=== PATIENT | male | born 1950 | race African-American/Black ===

== ENCOUNTER 2018-11-12 18:41 | Inpatient (IN) | payer MEDICARE, OTHER ==
[~2018-11-12] VITALS: Ht 182.9 cm; Wt 94.8 kg
[~2018-11-12 18:41] MED LIST: METF-416 PO; TAMS-11 PO
[2018-11-12] MEDS ORDERED: OXYCODONE HCL 5MG TABLET PO ONE (19:15)
[2018-11-12 21:16] LABS: HEMATOCRIT. 34.4 % (42.0-52.0); MEAN CORPUSCULAR HEMOGLOBIN 27.3 pg (28.0-32.0); MEAN CORPUSCULAR VOLUME 85.3 fL (80.0-94.0); MEAN PLATELET VOLUME 8.7 fl (7.4-10.4); PLATELET 257 x1000/uL (130-400); RED BLOOD CELL COUNT 4.03 mill/uL (4.7-6.1); RED CELL DISTRIBUTION WIDTH 18.8 % (11.6-14.6)
[2018-11-12 21:19] LABS: CHLORIDE 106 mEq/L (98-107)
[2018-11-12 21:21] LABS: PROTHROMBIN TIME 10.7 sec (9.6-11.0)
[2018-11-12 22:07] LABS: CLARITY URINE CLOUDY (CLEAR); COLOR URINE DARK YELLOW (YELLOW); KETONES URINE TRACE (NEGATIVE); LEUKOCYTE ESTERASE URINE 2+ (NEGATIVE); NITRITE URINE NEGATIVE (NEGATIVE); OCCULT BLOOD URINE NEGATIVE (NEGATIVE); PH URINE 6.5 (4.5-8.0); PROTEIN URINE 2+ (NEGATIVE); UROBILINOGEN URINE 0.2 E.U./dL (0.2-1.0)
[2018-11-12 22:11] LABS: PLATELET ESTIMATE NORMAL
[2018-11-12] MEDS ORDERED: MORPHINE SULFATE 2 MG/ML CPJ (NOT FOR IM USE) IV ONE (23:45)
[2018-11-13] VITALS (7 sets, daily range): BP systolic 110–171; BP diastolic 66–78
[2018-11-13 00:27] LABS: CREATINE KINASE MB FRACTION 2.1 ng/mL (0.5-3.6)
[2018-11-13] MEDS ORDERED: PIPERACILLIN/TAZ 3.375G PREMIX 50 ML IV ONE (00:45)
[2018-11-13] MEDS ORDERED: ONDANSETRON HCL 4MG/2ML INJ IV PRN (00:45)
[2018-11-13] MEDS ORDERED: ACETAMINOPHEN 650MG/20.3ML UDC GT PRN (00:45)
[2018-11-13] MEDS ORDERED: ACETAMINOPHEN 650MG SUPP PR PRN (00:45)
[2018-11-13] MEDS ORDERED: VANCOMYCIN 1 G PREMIX 200 ML IV SCH (00:45)
[2018-11-13] MEDS ORDERED: DEXTROSE 50% WATER 50ML SYRINGE IV PRN (00:45)
[2018-11-13] MEDS ORDERED: IPRATROPIUM/ALBUTEROL 0.5-3(2.5)MG/3ML NEB INH PRN (00:45)
[2018-11-13] MEDS ORDERED: CLINDAMYCIN 900 MG in DEXTROSE 5% WATER 50 ML IV ONE (00:45)
[2018-11-13] MEDS ORDERED: NA PHOS,M-B/NA PHOS,DI-BA ENEMA 118ML PR PRN (00:45)
[2018-11-13] MEDS ORDERED: DIPHENHYDRAMINE 50MG/ML VIAL IV PRN (00:45)
[2018-11-13] MEDS ORDERED: MAGNESIUM/ALUMINUM HYDROXIDE/SIMETHICONE 30ML UDC PO PRN (00:45)
[2018-11-13] MEDS ORDERED: SODIUM CHLORIDE 0.9% 1000ML BAG (SEPSIS BOLUS) IV ONE (00:45)
[2018-11-13] MEDS ORDERED: GUAIFENESIN 200MG/10ML SUGAR FREE UDC PO PRN (00:45)
[2018-11-13] MEDS: CLONIDINE 0.1MG TABLET PO PRN (02:36)
[2018-11-13] MEDS ORDERED: CEFTRIAXONE 1 G PREMIX 50 ML IV SCH ×2 (04:00→19:00)
[2018-11-13] MEDS: ENOXAPARIN 100MG/ML SYR SUBCUT SCH ×2 (04:21→17:25)
[2018-11-13] MEDS: DOCUSATE SODIUM 100MG CAPSULE PO PRN (04:21)
[2018-11-13] MEDS: BLOOD SUGAR DIAGNOSTIC STRIP TEST SCH ×4 (05:21→21:18)
[2018-11-13] MEDS: INSULIN LISPRO 100 UNITS/ML SUBCUT SCH ×4 (05:27→21:00)
[2018-11-13] MEDS: SODIUM CHLORIDE 0.9% INJ 3ML FLUSH IVF SCH ×3 (05:27→21:25)
[2018-11-13 07:48] LABS: CREATINE KINASE MB FRACTION 2.9 ng/mL (0.5-3.6)
[2018-11-13 09:21] LABS: HEMATOCRIT. 28.6 % (42.0-52.0); HEMOGLOBIN. 9.1 g/dL (14.0-18.0); MEAN CORPUSCULAR HEMOGLOBIN 27.1 pg (28.0-32.0); MEAN CORPUSCULAR VOLUME 85.3 fL (80.0-94.0); PLATELET 210 x1000/uL (130-400); RED BLOOD CELL COUNT 3.36 mill/uL (4.7-6.1); RED CELL DISTRIBUTION WIDTH 18.5 % (11.6-14.6)
[2018-11-13 11:03] LABS: INR 1.1; PROTHROMBIN TIME 11.2 sec (9.6-11.0)
[2018-11-13] MEDS: MORPHINE SULFATE 4 MG/ML CPJ (NOT FOR IM USE) IV PRN ×2 (11:06→15:27)
[2018-11-13] MEDS: METOPROLOL TARTRATE 25MG TABLET PO SCH ×2 (11:06→21:25)
[2018-11-13 11:42] LABS: CHLORIDE 110 mEq/L (98-107)
[2018-11-13] MEDS: HYDROCODONE/ACETAMINOPHEN 5/325MG TABLET PO PRN ×2 (13:06→17:24)
[2018-11-13 16:39] LABS: PLATELET ESTIMATE NORMAL
[2018-11-14] VITALS (7 sets, daily range): BP systolic 155–172; BP diastolic 68–81
[2018-11-14] MEDS: MORPHINE SULFATE 4 MG/ML CPJ (NOT FOR IM USE) IV PRN ×4 (00:36→20:35)
[2018-11-14] MEDS: CLONIDINE 0.1MG TABLET PO PRN ×2 (00:37→12:05)
[2018-11-14] MEDS: ACETAMINOPHEN 325MG TABLET PO PRN ×2 (00:37→16:36)
[2018-11-14] MEDS: BLOOD SUGAR DIAGNOSTIC STRIP TEST SCH ×4 (06:03→21:33)
[2018-11-14] MEDS: SODIUM CHLORIDE 0.9% INJ 3ML FLUSH IVF SCH ×3 (06:09→21:33)
[2018-11-14] MEDS: ENOXAPARIN 100MG/ML SYR SUBCUT SCH (06:09)
[2018-11-14 06:33] LABS: BASOPHILS % 0.6 % (0.0-2.0); EOSINOPHILS % 3.9 % (0.0-5.0); HEMATOCRIT. 30.8 % (42.0-52.0); LYMPHOCYTES % 8.2 % (20.0-50.0); MEAN CORPUSCULAR HEMOGLOBIN 27.6 pg (28.0-32.0); MEAN CORPUSCULAR VOLUME 85.1 fL (80.0-94.0); MEAN PLATELET VOLUME 8.8 fl (7.4-10.4); MONOCYTES % 4.8 % (2.0-8.0); NEUTROPHILS % 82.5 % (40.0-76.0); PLATELET 196 x1000/uL (130-400); RED BLOOD CELL COUNT 3.62 mill/uL (4.7-6.1); RED CELL DISTRIBUTION WIDTH 18.4 % (11.6-14.6)
[2018-11-14] MEDS: INSULIN LISPRO 100 UNITS/ML SUBCUT SCH ×4 (07:15→21:32)
[2018-11-14 08:40] LABS: CHLORIDE 110 mEq/L (98-107)
[2018-11-14 08:51] LABS: HDL CHOLESTEROL 60 mg/dL (40-59)
[2018-11-14 08:53] LABS: CREATINE KINASE 129 IU/L (39-308); LDL CHOLESTEROL 62 mg/dL (5-100)
[2018-11-14 08:58] LABS: CREATINE KINASE MB FRACTION 1.6 ng/mL (0.5-3.6)
[2018-11-14] MEDS: METOPROLOL TARTRATE 25MG TABLET PO SCH (09:03)
[2018-11-14] MEDS: CEFTRIAXONE 1 G PREMIX 50 ML IV SCH (09:03)
[2018-11-14] MEDS ORDERED: VANCOMYCIN 1 G PREMIX 200 ML IV SCH ×2 (11:00→22:00)
[2018-11-14] MEDS: AMLODIPINE 2.5MG TABLET PO SCH (21:31)
[2018-11-14] MEDS: METOPROLOL TARTRATE 50MG TABLET PO SCH (21:31)
[2018-11-15] VITALS: BP 110/77
[2018-11-15] MEDS: LINEZOLID 600 MG PREMIX 300 ML IV SCH ×2 (02:20→15:38)
[2018-11-15 04:00] VITALS: BP 157/74
[2018-11-15] MEDS: MORPHINE SULFATE 4 MG/ML CPJ (NOT FOR IM USE) IV PRN ×2 (06:27→18:54)
[2018-11-15 07:09] LABS: BASOPHILS % 0.4 % (0.0-2.0); EOSINOPHILS % 3.9 % (0.0-5.0); HEMATOCRIT. 29.4 % (42.0-52.0); HEMOGLOBIN. 9.7 g/dL (14.0-18.0); LYMPHOCYTES % 7.8 % (20.0-50.0); MEAN CORPUSCULAR VOLUME 84.8 fL (80.0-94.0); MONOCYTES % 6.6 % (2.0-8.0); NEUTROPHILS % 81.3 % (40.0-76.0); PLATELET 178 x1000/uL (130-400); RED BLOOD CELL COUNT 3.46 mill/uL (4.7-6.1); RED CELL DISTRIBUTION WIDTH 18.7 % (11.6-14.6)
[2018-11-15] MEDS: SODIUM CHLORIDE 0.9% INJ 3ML FLUSH IVF SCH ×3 (07:13→21:32)
[2018-11-15] MEDS: INSULIN LISPRO 100 UNITS/ML SUBCUT SCH ×4 (07:15→21:00)
[2018-11-15] MEDS: BLOOD SUGAR DIAGNOSTIC STRIP TEST SCH ×4 (07:17→21:32)
[2018-11-15 07:41] LABS: CHLORIDE 108 mEq/L (98-107)
[2018-11-15 08:00] VITALS: BP 129/75
[2018-11-15] MEDS ORDERED: BACITRACIN 15GM TUBE TOP ONE (08:05)
[2018-11-15] MEDS ORDERED: VANCOMYCIN HCL 500 MG/VIAL ONE (08:05)
[2018-11-15] MEDS ORDERED: ENOXAPARIN 40MG/0.4ML SYR SUBCUT SCH (09:00)
[2018-11-15] MEDS: METOPROLOL TARTRATE 50MG TABLET PO SCH ×2 (09:03→21:32)
[2018-11-15] MEDS: AMLODIPINE 2.5MG TABLET PO SCH ×2 (09:04→21:32)
[2018-11-15] MEDS: CEFTRIAXONE 1 G PREMIX 50 ML IV SCH (09:04)
[2018-11-15] MEDS ORDERED: PROPOFOL 200MG/20ML VIAL IV ONE ×2 (11:34→12:00)
[2018-11-15] MEDS ORDERED: FENTANYL CITRATE/PF 50MCG/ML 2ML VIAL ONE ×2 (11:34→12:14)
[2018-11-15] MEDS ORDERED: LIDOCAINE HCL/PF 1% 10 MG/ML 5ML VIAL ONE (11:34)
[2018-11-15] MEDS ORDERED: MIDAZOLAM HCL 2 MG/2 ML VIAL ONE (11:34)
[2018-11-15] MEDS ORDERED: CEFAZOLIN SODIUM 1000MG/VIAL ONE (11:51)
[2018-11-15] MEDS ORDERED: PROPOFOL 10MG/ML 100ML 100 ML IV ONE (12:23)
[2018-11-15] MEDS ORDERED: FENTANYL CITRATE/PF 50MCG/ML 2ML VIAL IV PRN (12:45)
[2018-11-15] MEDS ORDERED: ONDANSETRON HCL 4MG/2ML INJ IV PRN (12:45)
[2018-11-15] MEDS ORDERED: HYDROMORPHONE HCL/PF 2MG/ML CPJ IV PRN (12:45)
[2018-11-15] MEDS: CLONIDINE 0.1MG TABLET PO PRN (15:38)
[2018-11-15 16:00] VITALS: BP 182/79
[2018-11-15 20:00] VITALS: BP 168/72
[2018-11-16] VITALS: BP 142/74
[2018-11-16] MEDS: LINEZOLID 600 MG PREMIX 300 ML IV SCH ×2 (02:54→16:45)
[2018-11-16 04:00] VITALS: BP 158/70
[2018-11-16] MEDS: MORPHINE SULFATE 4 MG/ML CPJ (NOT FOR IM USE) IV PRN ×2 (04:35→11:06)
[2018-11-16] MEDS: SODIUM CHLORIDE 0.9% INJ 3ML FLUSH IVF SCH ×3 (06:00→21:14)
[2018-11-16] MEDS: BLOOD SUGAR DIAGNOSTIC STRIP TEST SCH ×4 (06:09→21:14)
[2018-11-16] MEDS: INSULIN LISPRO 100 UNITS/ML SUBCUT SCH ×4 (07:06→21:11)
[2018-11-16 08:00] VITALS: BP 99/63
[2018-11-16] MEDS: AMLODIPINE 2.5MG TABLET PO SCH ×2 (09:00→21:12)
[2018-11-16] MEDS: METOPROLOL TARTRATE 50MG TABLET PO SCH ×2 (09:00→21:12)
[2018-11-16] MEDS: ACETAMINOPHEN 325MG TABLET PO PRN ×3 (09:10→21:28)
[2018-11-16] MEDS: CEFTRIAXONE 1 G PREMIX 50 ML IV SCH (09:11)
[2018-11-16 12:00] VITALS: BP 155/61
[2018-11-16 16:00] VITALS: BP 168/71
[2018-11-16] MEDS: CLONIDINE 0.1MG TABLET PO PRN (17:02)
[2018-11-16 20:00] VITALS: BP 114/66
[2018-11-17] VITALS: BP 165/72
[2018-11-17] MEDS: LINEZOLID 600 MG PREMIX 300 ML IV SCH ×2 (03:07→15:04)
[2018-11-17 04:00] VITALS: BP 156/69
[2018-11-17] MEDS: SODIUM CHLORIDE 0.9% INJ 3ML FLUSH IVF SCH ×3 (06:52→21:59)
[2018-11-17] MEDS: BLOOD SUGAR DIAGNOSTIC STRIP TEST SCH ×4 (06:53→21:54)
[2018-11-17] MEDS: INSULIN LISPRO 100 UNITS/ML SUBCUT SCH ×4 (07:15→21:59)
[2018-11-17 08:00] VITALS: BP 178/76
[2018-11-17] MEDS: DOCUSATE SODIUM 100MG CAPSULE PO PRN (08:25)
[2018-11-17] MEDS: CEFTRIAXONE 1 G PREMIX 50 ML IV SCH (08:25)
[2018-11-17] MEDS: METOPROLOL TARTRATE 50MG TABLET PO SCH ×2 (08:26→21:54)
[2018-11-17] MEDS: AMLODIPINE 2.5MG TABLET PO SCH ×2 (08:26→21:54)
[2018-11-17 12:00] VITALS: BP 173/68
[2018-11-17] MEDS: ENOXAPARIN 40MG/0.4ML SYR SUBCUT SCH (13:09)
[2018-11-17 16:00] VITALS: BP 163/86
[2018-11-17] MEDS: CLONIDINE 0.1MG TABLET PO PRN (16:23)
[2018-11-17] MEDS: ACETAMINOPHEN 325MG TABLET PO PRN (16:25)
[2018-11-17] MEDS ORDERED: MORPHINE SULFATE 2 MG/ML CPJ (NOT FOR IM USE) IV PRN (16:30)
[2018-11-17 20:00] VITALS: BP 156/59
[2018-11-18] VITALS: BP 146/80
[2018-11-18 04:00] VITALS: BP 156/51
[2018-11-18] MEDS: SODIUM CHLORIDE 0.9% INJ 3ML FLUSH IVF SCH ×3 (05:35→21:56)
[2018-11-18] MEDS: BLOOD SUGAR DIAGNOSTIC STRIP TEST SCH ×4 (06:02→21:35)
[2018-11-18] MEDS: INSULIN LISPRO 100 UNITS/ML SUBCUT SCH ×4 (06:17→21:00)
[2018-11-18 08:00] VITALS: BP 178/69
[2018-11-18] MEDS: ENOXAPARIN 40MG/0.4ML SYR SUBCUT SCH (09:23)
[2018-11-18] MEDS: DOCUSATE SODIUM 100MG CAPSULE PO SCH (09:23)
[2018-11-18] MEDS: METOPROLOL TARTRATE 50MG TABLET PO SCH ×2 (09:24→21:33)
[2018-11-18] MEDS: AMLODIPINE 2.5MG TABLET PO SCH ×2 (09:24→21:33)
[2018-11-18] MEDS: CEFTRIAXONE 1 G PREMIX 50 ML IV SCH (09:25)
[2018-11-18 12:00] VITALS: BP 163/59
[2018-11-18 16:00] VITALS: BP 189/79
[2018-11-18] MEDS: CLONIDINE 0.1MG TABLET PO PRN (18:37)
[2018-11-18 20:00] VITALS: BP 174/71
[2018-11-19] VITALS: BP 152/56
[2018-11-19 04:00] VITALS: BP 149/60
[2018-11-19] MEDS: SODIUM CHLORIDE 0.9% INJ 3ML FLUSH IVF SCH ×3 (05:14→21:13)
[2018-11-19] MEDS: BLOOD SUGAR DIAGNOSTIC STRIP TEST SCH ×4 (05:45→20:53)
[2018-11-19] MEDS: INSULIN LISPRO 100 UNITS/ML SUBCUT SCH ×4 (06:22→21:00)
[2018-11-19 06:38] LABS: CHLORIDE 107 mEq/L (98-107)
[2018-11-19 06:52] LABS: BASOPHILS % 0.8 % (0.0-2.0); EOSINOPHILS % 3.1 % (0.0-5.0); HEMATOCRIT. 27.4 % (42.0-52.0); HEMOGLOBIN. 9.1 g/dL (14.0-18.0); LYMPHOCYTES % 13.2 % (20.0-50.0); MEAN CORPUSCULAR VOLUME 84.1 fL (80.0-94.0); MEAN PLATELET VOLUME 8.3 fl (7.4-10.4); MONOCYTES % 10.8 % (2.0-8.0); NEUTROPHILS % 72.1 % (40.0-76.0); PLATELET 260 x1000/uL (130-400); RED BLOOD CELL COUNT 3.26 mill/uL (4.7-6.1); RED CELL DISTRIBUTION WIDTH 17.8 % (11.6-14.6)
[2018-11-19] MEDS ORDERED: POTASSIUM CHLORIDE 20MEQ TABLET SR PO NR (07:05)
[2018-11-19 08:00] VITALS: BP 166/59
[2018-11-19] MEDS: AMLODIPINE 2.5MG TABLET PO SCH ×2 (09:15→21:13)
[2018-11-19] MEDS: METOPROLOL TARTRATE 50MG TABLET PO SCH ×2 (09:15→20:53)
[2018-11-19] MEDS: CEFTRIAXONE 1 G PREMIX 50 ML IV SCH (09:15)
[2018-11-19] MEDS: DOCUSATE SODIUM 100MG CAPSULE PO SCH (09:15)
[2018-11-19] MEDS: ENOXAPARIN 40MG/0.4ML SYR SUBCUT SCH (10:06)
[2018-11-19] MEDS ORDERED: NON FORMULARY PATIENT HOME MED PO SCH (12:00)
[2018-11-19] MEDS ORDERED: POTASSIUM CHLORIDE 20MEQ TABLET SR PO SCH (12:00)
[2018-11-19 12:03] VITALS: BP 145/61
[2018-11-19 16:00] VITALS: BP 155/55
[2018-11-19 20:00] VITALS: BP 157/61
[2018-11-19] MEDS ORDERED: CLONIDINE 0.1MG TABLET PO SCH (22:00)
[2018-11-20] VITALS (7 sets, daily range): BP systolic 137–168; BP diastolic 48–70
[2018-11-20] MEDS: SODIUM CHLORIDE 0.9% INJ 3ML FLUSH IVF SCH ×2 (06:59→13:21)
[2018-11-20] MEDS: INSULIN LISPRO 100 UNITS/ML SUBCUT SCH ×4 (06:59→20:55)
[2018-11-20] MEDS: BLOOD SUGAR DIAGNOSTIC STRIP TEST SCH ×4 (06:59→20:55)
[2018-11-20] MEDS: AMLODIPINE 2.5MG TABLET PO SCH (08:45)
[2018-11-20] MEDS: METOPROLOL TARTRATE 50MG TABLET PO SCH ×2 (08:45→20:51)
[2018-11-20] MEDS: DOCUSATE SODIUM 100MG CAPSULE PO SCH (08:45)
[2018-11-20] MEDS: CEFTRIAXONE 1 G PREMIX 50 ML IV SCH (08:46)
[2018-11-20] MEDS: ENOXAPARIN 40MG/0.4ML SYR SUBCUT SCH (08:46)
[2018-11-20] MEDS: AMLODIPINE 5MG TABLET PO SCH (20:51)
[2018-11-20] MEDS: CLONIDINE 0.1MG TABLET PO SCH (20:52)
[2018-11-21] MEDS: SODIUM CHLORIDE 0.9% INJ 3ML FLUSH IVF SCH ×4 (00:53→21:03)
[2018-11-21 04:00] VITALS: BP 157/56
[2018-11-21 04:05] VITALS: BP 157/56
[2018-11-21] MEDS: BLOOD SUGAR DIAGNOSTIC STRIP TEST SCH ×4 (06:11→21:03)
[2018-11-21] MEDS: INSULIN LISPRO 100 UNITS/ML SUBCUT SCH ×4 (06:21→21:03)
[2018-11-21 08:15] VITALS: BP 159/66
[2018-11-21] MEDS: METOPROLOL TARTRATE 50MG TABLET PO SCH ×2 (08:18→21:00)
[2018-11-21] MEDS: CEFTRIAXONE 1 G PREMIX 50 ML IV SCH (08:18)
[2018-11-21] MEDS: AMLODIPINE 5MG TABLET PO SCH ×2 (08:18→21:00)
[2018-11-21] MEDS: DOCUSATE SODIUM 100MG CAPSULE PO SCH (08:18)
[2018-11-21] MEDS: CLONIDINE 0.1MG TABLET PO SCH ×2 (08:18→21:00)
[2018-11-21] MEDS: ENOXAPARIN 40MG/0.4ML SYR SUBCUT SCH (08:19)
[2018-11-21 12:00] VITALS: BP 162/69
[2018-11-21 16:00] VITALS: BP 128/56
[2018-11-21 20:00] VITALS: BP 163/84
[2018-11-22] VITALS: BP 128/54
[2018-11-22 04:00] VITALS: BP 147/56
[2018-11-22] MEDS: BLOOD SUGAR DIAGNOSTIC STRIP TEST SCH ×3 (06:00→16:52)
[2018-11-22] MEDS: INSULIN LISPRO 100 UNITS/ML SUBCUT SCH ×3 (06:00→17:15)
[2018-11-22] MEDS: SODIUM CHLORIDE 0.9% INJ 3ML FLUSH IVF SCH ×2 (06:02→15:55)
[2018-11-22 08:22] VITALS: BP 148/51
[2018-11-22] MEDS: DOCUSATE SODIUM 100MG CAPSULE PO SCH (09:45)
[2018-11-22] MEDS: CLONIDINE 0.1MG TABLET PO SCH ×2 (09:49→17:53)
[2018-11-22] MEDS: ENOXAPARIN 40MG/0.4ML SYR SUBCUT SCH (09:53)
[2018-11-22] MEDS: AMLODIPINE 5MG TABLET PO SCH (09:59)
[2018-11-22] MEDS: METOPROLOL TARTRATE 50MG TABLET PO SCH (09:59)
[2018-11-22 12:00] VITALS: BP 150/56
[2018-11-22 16:00] VITALS: BP 140/71
[2018-11-22 19:23] VITALS: BP 140/71
== END 2018-11-22 18:10 | DRG 853 ==
LOC: ER 18:41 → 5WST 11-13 00:26 → ENRESERV 11-13 01:19 → EDBEDREQSVC 11-13 01:22
PROVIDERS: ADMIT Family Medicine; ATTEND Family Medicine
PROC: 0QS734Z Reposition Left Upper Femur with Internal Fixation Device, Percutaneous Approach (ICD-10-PCS; principal; 2018-11-15)
PROC: BQ14ZZZ Fluoroscopy of Left Femur (ICD-10-PCS; 2018-11-15)
DX: A41.9 Sepsis, unspecified organism (principal); S72.012A Unspecified intracapsular fracture of left femur, initial encounter for closed fracture; I21.4 Non-ST elevation (NSTEMI) myocardial infarction; E44.0 Moderate protein-calorie malnutrition; N39.0 Urinary tract infection, site not specified; I42.9 Cardiomyopathy, unspecified; E83.51 Hypocalcemia; D64.9 Anemia, unspecified; E11.51 Type 2 diabetes mellitus with diabetic peripheral angiopathy without gangrene; L89.150 Pressure ulcer of sacral region, unstageable; I10 Essential (primary) hypertension; B96.89 Other specified bacterial agents as the cause of diseases classified elsewhere; L89.159 Pressure ulcer of sacral region, unspecified stage; W05.0XXA Fall from non-moving wheelchair, initial encounter; M17.12 Unilateral primary osteoarthritis, left knee; N31.9 Neuromuscular dysfunction of bladder, unspecified; Z89.512 Acquired absence of left leg below knee; Z89.511 Acquired absence of right leg below knee; Z83.3 Family history of diabetes mellitus; Z99.3 Dependence on wheelchair; Z79.899 Other long term (current) drug therapy; Z79.84 Long term (current) use of oral hypoglycemic drugs; Y93.89 Activity, other specified; Y92.89 Other specified places as the place of occurrence of the external cause; Y99.8 Other external cause status; Z68.28 Body mass index [BMI] 28.0-28.9, adult
CPT/HCPCS: 36415; 71045; 72192; 73502; 73522; 73560; 73700; 76000; 80048; 80061; 80202; 82550; 82553; 82962; 83605; 84132; 84134; 84484; 86850; 86900; 87077; 87186; 93005; 93306; 96374; 97110; 97162; 97166; 97530; 97535; 99285; A6261; J0690; J0696; J1650; J1815; J2020; J2250; J2270; J2543; J2704; J3010; J3370; J3490; J7030; J7040; J7060; A4315

== ENCOUNTER 2021-03-04 18:02 | Inpatient (IN) | payer MEDICARE, OTHER ==
[~2021-03-04] VITALS: Ht 177.8 cm; Wt 84.0 kg
[2021-03-04] MEDS ORDERED: MORPHINE SULFATE 4 MG/ML CPJ (NOT FOR IM USE) IV ONE (18:30)
[2021-03-04] MEDS ORDERED: ONDANSETRON HCL 4MG/2ML INJ IV ONE (18:30)
[2021-03-04 19:09] LABS: CHLORIDE 101 mEq/L (98-107)
[2021-03-04 19:13] LABS: HEMATOCRIT. 34.8 % (42.0-52.0); HEMOGLOBIN. 11.6 g/dL (14.0-18.0); MEAN CORPUSCULAR HEMOGLOBIN 28.4 pg (28.0-32.0); MEAN PLATELET VOLUME 8.5 fl (7.4-10.4); PLATELET 360 x1000/uL (130-400); RED CELL DISTRIBUTION WIDTH 16.2 % (11.6-14.6)
[2021-03-04 19:29] LABS: CREATINE KINASE 2309 IU/L (39-308)
[2021-03-04 19:38] LABS: PLATELET ESTIMATE NORMAL
[2021-03-04] MEDS ORDERED: CEFTRIAXONE 1 G PREMIX 50 ML IV ONE (19:45)
[2021-03-04] MEDS ORDERED: SODIUM CHLORIDE 0.9% 1000ML BAG (SEPSIS BOLUS) IV ONE (19:45)
[2021-03-04 19:51] LABS: INR 1.1; PARTIAL THROMBOPLASTIN TIME 31.3 sec (23.4-31.0); PROTHROMBIN TIME 11.7 sec (9.6-11.0)
[2021-03-04] MEDS ORDERED: LEVOFLOXACIN 500MG PREMIX 100 ML IV ONE (21:30)
[2021-03-04 21:55] LABS: CLARITY URINE CLEAR (CLEAR); COLOR URINE DARK YELLOW (YELLOW); KETONES URINE TRACE (NEGATIVE); LEUKOCYTE ESTERASE URINE 1+ (NEGATIVE); NITRITE URINE NEGATIVE (NEGATIVE); OCCULT BLOOD URINE 3+ (NEGATIVE); PROTEIN URINE 3+ (NEGATIVE); SPECIFIC GRAVITY URINE 1.021 (1.005-1.030)
[2021-03-05] VITALS (9 sets, daily range): BP systolic 121–146; BP diastolic 60–75
[2021-03-05] MEDS ORDERED: DEXTROSE 50% WATER 50ML SYRINGE IV PRN (02:45)
[2021-03-05] MEDS ORDERED: ONDANSETRON HCL 4MG/2ML INJ IV PRN (02:45)
[2021-03-05] MEDS ORDERED: HEPARIN 25,000 UNITS PREMIX 250 ML IV SCH ×2 (02:45→05:15)
[2021-03-05] MEDS ORDERED: ACETAMINOPHEN 325MG TABLET PO PRN (02:45)
[2021-03-05] MEDS ORDERED: HEPARIN 60 UNITS/KG BOLUS IV SCH ×2 (05:00→07:00)
[2021-03-05] MEDS ORDERED: HEPARIN BOLUS PRN aPTT <30 IV ×2 (05:15→10:00)
[2021-03-05] MEDS ORDERED: HEPARIN BOLUS PRN aPTT 30-44 IV ×2 (05:15→10:00)
[2021-03-05] MEDS: BLOOD SUGAR DIAGNOSTIC STRIP TEST SCH ×4 (07:30→20:29)
[2021-03-05 07:48] LABS: HEMATOCRIT. 32.5 % (42.0-52.0); HEMOGLOBIN. 10.6 g/dL (14.0-18.0); MEAN PLATELET VOLUME 8.4 fl (7.4-10.4); PLATELET 321 x1000/uL (130-400); RED BLOOD CELL COUNT 3.77 mill/uL (4.7-6.1); RED CELL DISTRIBUTION WIDTH 16.7 % (11.6-14.6)
[2021-03-05] MEDS: ASPIRIN 81MG TABLET PO SCH (08:55)
[2021-03-05] MEDS: AMLODIPINE 10MG TABLET PO SCH (08:55)
[2021-03-05] MEDS: METOPROLOL TARTRATE 50MG TABLET PO SCH ×2 (08:55→20:18)
[2021-03-05] MEDS: INSULIN LISPRO 100 UNITS/ML SUBCUT SCH ×4 (08:59→20:28)
[2021-03-05] MEDS: PANTOPRAZOLE 40MG DR TABLET PO SCH (09:00)
[2021-03-05] MEDS: INSULIN GLARGINE UD 100 UNITS/ML SYR SUBCUT SCH ×2 (10:12→20:29)
[2021-03-05] MEDS: SODIUM CHLORIDE 0.9% 1,000 ML IV SCH (11:15)
[2021-03-05] MEDS ORDERED: NALOXONE HCL 0.4MG/ML VIAL IV PRN (12:00)
[2021-03-05] MEDS: HYDROCODONE/ACETAMINOPHEN 5/325MG TABLET PO PRN ×2 (12:42→23:06)
[2021-03-05] MEDS: CEFTRIAXONE 1,000 MG in DEXTROSE 5% WATER 50 ML IV SCH (20:17)
[2021-03-05 20:37] LABS: PLATELET ESTIMATE NORMAL
[2021-03-05] MEDS ORDERED: FAMOTIDINE 20MG TABLET PO SCH (21:00)
[2021-03-05] MEDS: HYDRALAZINE HCL 50MG TABLET PO SCH (22:40)
[2021-03-06] VITALS (12 sets, daily range): BP systolic 112–155; BP diastolic 48–78
[2021-03-06 03:15] LABS: HEMOGLOBIN. 10.7 g/dL (14.0-18.0); MEAN CORPUSCULAR HEMOGLOBIN 28.6 pg (28.0-32.0); MEAN CORPUSCULAR VOLUME 85.2 fL (80.0-94.0); MEAN PLATELET VOLUME 7.9 fl (7.4-10.4); PLATELET 344 x1000/uL (130-400); RED BLOOD CELL COUNT 3.75 mill/uL (4.7-6.1); RED CELL DISTRIBUTION WIDTH 16.1 % (11.6-14.6)
[2021-03-06 03:43] LABS: CHLORIDE 103 mEq/L (98-107)
[2021-03-06] MEDS: HYDRALAZINE HCL 50MG TABLET PO SCH ×3 (05:21→21:33)
[2021-03-06] MEDS: HYDROCODONE/ACETAMINOPHEN 5/325MG TABLET PO PRN ×2 (05:31→21:34)
[2021-03-06] MEDS ORDERED: POTASSIUM CHLORIDE 20MEQ/PACKET PO SCH (07:00)
[2021-03-06] MEDS: SODIUM CHLORIDE 0.9% 1,000 ML IV SCH (07:15)
[2021-03-06] MEDS: BLOOD SUGAR DIAGNOSTIC STRIP TEST SCH ×4 (07:30→21:33)
[2021-03-06] MEDS: INSULIN LISPRO 100 UNITS/ML SUBCUT SCH ×4 (08:00→21:37)
[2021-03-06] MEDS: AMLODIPINE 10MG TABLET PO SCH (09:28)
[2021-03-06] MEDS: ASPIRIN 81MG TABLET PO SCH (09:28)
[2021-03-06] MEDS: METOPROLOL TARTRATE 50MG TABLET PO SCH ×2 (09:29→21:33)
[2021-03-06] MEDS: PANTOPRAZOLE 40MG DR TABLET PO SCH (09:30)
[2021-03-06] MEDS ORDERED: POTASSIUM CHLORIDE 20MEQ TABLET SR PO NR (10:00)
[2021-03-06] MEDS: INSULIN GLARGINE UD 100 UNITS/ML SYR SUBCUT SCH ×2 (10:00→21:37)
[2021-03-06 16:37] LABS: PLATELET ESTIMATE NORMAL
[2021-03-06] MEDS: FAMOTIDINE 20MG TABLET PO SCH (21:32)
[2021-03-06] MEDS: CEFTRIAXONE 1,000 MG in DEXTROSE 5% WATER 50 ML IV SCH (21:32)
[2021-03-07] VITALS (13 sets, daily range): BP systolic 110–150; BP diastolic 43–98
[2021-03-07] MEDS: SODIUM CHLORIDE 0.9% 1,000 ML IV SCH ×2 (03:15→22:55)
[2021-03-07] MEDS: HYDRALAZINE HCL 50MG TABLET PO SCH ×3 (05:24→21:51)
[2021-03-07] MEDS: BLOOD SUGAR DIAGNOSTIC STRIP TEST SCH ×4 (07:58→20:26)
[2021-03-07] MEDS: FAMOTIDINE 20MG TABLET PO SCH ×2 (07:59→20:53)
[2021-03-07] MEDS: INSULIN LISPRO 100 UNITS/ML SUBCUT SCH ×4 (07:59→20:26)
[2021-03-07] MEDS: AMLODIPINE 10MG TABLET PO SCH (08:00)
[2021-03-07] MEDS: ASPIRIN 81MG TABLET PO SCH (08:00)
[2021-03-07] MEDS: METOPROLOL TARTRATE 50MG TABLET PO SCH ×2 (08:01→20:53)
[2021-03-07] MEDS ORDERED: LEVO500T89 MT (08:36)
[2021-03-07] MEDS: ENOXAPARIN 40MG/0.4ML SYR SUBCUT SCH (09:58)
[2021-03-07] MEDS: INSULIN GLARGINE UD 100 UNITS/ML SYR SUBCUT SCH ×2 (10:03→22:00)
[2021-03-07 10:23] LABS: HEMATOCRIT. 30.8 % (42.0-52.0); HEMOGLOBIN. 10.3 g/dL (14.0-18.0); MEAN CORPUSCULAR HEMOGLOBIN 28.3 pg (28.0-32.0); MEAN CORPUSCULAR VOLUME 84.7 fL (80.0-94.0); MEAN PLATELET VOLUME 8.1 fl (7.4-10.4); PLATELET 391 x1000/uL (130-400); RED BLOOD CELL COUNT 3.64 mill/uL (4.7-6.1); RED CELL DISTRIBUTION WIDTH 16.2 % (11.6-14.6)
[2021-03-07 10:33] LABS: CHLORIDE 105 mEq/L (98-107)
[2021-03-07 13:17] LABS: PLATELET ESTIMATE NORMAL
[2021-03-07] MEDS: CEFTRIAXONE 1,000 MG in DEXTROSE 5% WATER 50 ML IV SCH (19:40)
[2021-03-08] VITALS (12 sets, daily range): BP systolic 120–162; BP diastolic 54–108
[2021-03-08] MEDS: HYDRALAZINE HCL 50MG TABLET PO SCH ×3 (06:42→21:31)
[2021-03-08] MEDS: FAMOTIDINE 20MG TABLET PO SCH ×2 (06:42→21:31)
[2021-03-08] MEDS: HYDROCODONE/ACETAMINOPHEN 5/325MG TABLET PO PRN (06:48)
[2021-03-08] MEDS: INSULIN LISPRO 100 UNITS/ML SUBCUT SCH ×4 (08:00→21:00)
[2021-03-08] MEDS: BLOOD SUGAR DIAGNOSTIC STRIP TEST SCH ×4 (08:09→21:35)
[2021-03-08] MEDS: AMLODIPINE 10MG TABLET PO SCH (08:37)
[2021-03-08] MEDS: METOPROLOL TARTRATE 50MG TABLET PO SCH ×2 (08:37→21:31)
[2021-03-08] MEDS: ASPIRIN 81MG TABLET PO SCH (08:37)
[2021-03-08] MEDS: ENOXAPARIN 40MG/0.4ML SYR SUBCUT SCH (08:38)
[2021-03-08] MEDS: INSULIN GLARGINE UD 100 UNITS/ML SYR SUBCUT SCH ×2 (09:42→21:33)
[2021-03-08] MEDS: CEFTRIAXONE 1,000 MG in DEXTROSE 5% WATER 50 ML IV SCH (20:00)
[2021-03-09] VITALS: BP 154/52
[2021-03-09 02:00] VITALS: BP 149/64
[2021-03-09 03:53] VITALS: BP 148/68
[2021-03-09] MEDS: HYDRALAZINE HCL 50MG TABLET PO SCH (05:21)
[2021-03-09 06:00] VITALS: BP 156/66
[2021-03-09] MEDS: AMLODIPINE 10MG TABLET PO SCH (07:13)
[2021-03-09] MEDS: METOPROLOL TARTRATE 50MG TABLET PO SCH (07:13)
== END 2021-03-09 13:13 | disposition home health service (06) | DRG 871 ==
LOC: ER 18:02 → 5EST 21:24 → EDBEDREQTM 21:27 → EDBEDREQSVC 21:27 → EDBEDREQ 21:27 → ENRESERV 22:50
PROVIDERS: ADMIT Internal Medicine; ATTEND Internal Medicine
DX: A41.9 Sepsis, unspecified organism (principal); E43 Unspecified severe protein-calorie malnutrition; N17.0 Acute kidney failure with tubular necrosis; I21.4 Non-ST elevation (NSTEMI) myocardial infarction; N39.0 Urinary tract infection, site not specified; M62.82 Rhabdomyolysis; E87.2 Acidosis; M48.02 Spinal stenosis, cervical region; E11.51 Type 2 diabetes mellitus with diabetic peripheral angiopathy without gangrene; R74.01 Elevation of levels of liver transaminase levels; M25.552 Pain in left hip; G89.29 Other chronic pain; I10 Essential (primary) hypertension; Z96.642 Presence of left artificial hip joint; Z99.3 Dependence on wheelchair; Z82.49 Family history of ischemic heart disease and other diseases of the circulatory system; Z83.3 Family history of diabetes mellitus; Z89.511 Acquired absence of right leg below knee; Z68.26 Body mass index [BMI] 26.0-26.9, adult
CPT/HCPCS: 36415; 70486; 71045; 72192; 73502; 80048; 80053; 80061; 81003; 82550; 82962; 83036; 83605; 83880; 84484; 85025; 87077; 87186; 93005; 93306; 97162; 99291; A6261; J0696; J1644; J1650; J1815; J1956; J2270; J2405; J7030; J7060; A4315

== ENCOUNTER 2021-06-23 15:01 | Inpatient (IN) | payer MEDICARE, OTHER ==
[~2021-06-23] VITALS: Ht 182.9 cm; Wt 84.6 kg
[~2021-06-23 15:01] MED LIST changes: +LEVO500T89 MT
[2021-06-23] MEDS ORDERED: METHYLPREDNISOLONE SOD SUCC 125 MG/2 ML VIAL IV STA (15:13)
[2021-06-23] MEDS ORDERED: IPRATROPIUM BROMIDE (0.02%) 0.5MG/2.5ML NEB HHN STA (15:13)
[2021-06-23] MEDS ORDERED: ALBUTEROL (0.083%) 2.5MG/3ML NEB HHN STA (15:13)
[2021-06-23 15:27] LABS: HEMATOCRIT. 31.1 % (42.0-52.0); HEMOGLOBIN. 9.7 g/dL (14.0-18.0); MEAN CORPUSCULAR HEMOGLOBIN 27.6 pg (28.0-32.0); MEAN CORPUSCULAR VOLUME 88.3 fL (80.0-94.0); MEAN PLATELET VOLUME 8.7 fl (7.4-10.4); PLATELET 352 x1000/uL (130-400); RED BLOOD CELL COUNT 3.52 mill/uL (4.7-6.1); RED CELL DISTRIBUTION WIDTH 15.6 % (11.6-14.6)
[2021-06-23] MEDS ORDERED: NITROGLYCERIN 50MG PREMIX 250 ML IV ONE (15:30)
[2021-06-23 15:33] LABS: CHLORIDE 98 mEq/L (98-107)
[2021-06-23 16:00] LABS: PLATELET ESTIMATE NORMAL
[2021-06-23] MEDS ORDERED: PIPERACILLIN/TAZ 3.375G PREMIX 50 ML IV NR (16:00)
[2021-06-23] MEDS ORDERED: PIPERACILLIN/TAZOBACTAM 3.375GM/50ML PREMIX IV ONE (16:00)
[2021-06-23] MEDS ORDERED: VANCOMYCIN 1 G PREMIX 200 ML IV NR (16:00)
[2021-06-23] MEDS ORDERED: FUROSEMIDE 40MG/4ML VIAL IVP NR (16:00)
[2021-06-23] MEDS ORDERED: HEPARIN 25,000 UNITS in DEXT 5% WATER 250 ML IV PRN (17:30)
[2021-06-23] MEDS ORDERED: HEPARIN 5000 UNITS/ML VIAL IV PRN ×3 (17:30→18:30)
[2021-06-23 17:44] LABS: INR 1.4; PARTIAL THROMBOPLASTIN TIME 34.8 sec (23.4-31.0); PROTHROMBIN TIME 14.5 sec (9.6-11.0)
[2021-06-23] MEDS ORDERED: HEPARIN 5000 UNITS/ML VIAL IV NR (18:30)
[2021-06-23] MEDS ORDERED: HEPARIN 25,000 UNITS in DEXT 5% WATER 245 ML IV PRN (18:30)
[2021-06-23 20:51] LABS: CLARITY URINE CLEAR (CLEAR); COLOR URINE YELLOW (YELLOW); KETONES URINE TRACE (NEGATIVE); LEUKOCYTE ESTERASE URINE 2+ (NEGATIVE); NITRITE URINE NEGATIVE (NEGATIVE); OCCULT BLOOD URINE TRACE (NEGATIVE); PROTEIN URINE 1+ (NEGATIVE); SPECIFIC GRAVITY URINE 1.017 (1.005-1.030); UROBILINOGEN URINE 0.2 E.U./dL (0.2-1.0)
[2021-06-24] VITALS (10 sets, daily range): BP systolic 107–150; BP diastolic 48–81
[2021-06-24] MEDS ORDERED: MORPHINE SULFATE 2 MG/ML CPJ (NOT FOR IM USE) IV PRN (06:00)
[2021-06-24] MEDS ORDERED: ACETAMINOPHEN 325MG TABLET PO PRN (06:00)
[2021-06-24] MEDS ORDERED: MAGNESIUM/ALUMINUM HYDROXIDE/SIMETHICONE 30ML UDC PO PRN (06:00)
[2021-06-24] MEDS ORDERED: AMLODIPINE 10MG TABLET PO SCH (06:00)
[2021-06-24] MEDS ORDERED: CLONIDINE 0.1MG TABLET PO PRN (06:00)
[2021-06-24] MEDS: ENOXAPARIN 100MG/ML SYR SUBCUT SCH ×2 (06:12→18:18)
[2021-06-24] MEDS: FUROSEMIDE 40MG/4ML VIAL IV SCH ×3 (06:12→17:57)
[2021-06-24] MEDS: AMLODIPINE 10MG TABLET PO SCH (06:13)
[2021-06-24] MEDS ORDERED: NALOXONE HCL 0.4MG/ML VIAL IV PRN (10:45)
[2021-06-24] MEDS ORDERED: DEXTROSE 50% WATER 50ML SYRINGE IV PRN (10:45)
[2021-06-24] MEDS: BLOOD SUGAR DIAGNOSTIC STRIP TEST SCH ×3 (11:47→20:27)
[2021-06-24] MEDS: ASPIRIN 81MG EC TABLET PO SCH (11:56)
[2021-06-24] MEDS: TAMSULOSIN HCL 0.4MG SR CAPSULE PO SCH (11:56)
[2021-06-24] MEDS: INSULIN LISPRO 100 UNITS/ML SUBCUT SCH ×3 (11:59→20:27)
[2021-06-24] MEDS ORDERED: IPRATROPIUM/ALBUTEROL 0.5-3(2.5)MG/3ML NEB HHN PRN (16:00)
[2021-06-24 16:44] LABS: BG BASE EXCESS 2.6 mmol/L (-2.0-2.0); BG CARBOXYHEMOGLOBIN 0.3 % (0.5-1.5); BG DEOXYHEMOGLOBIN 1.7 % (0.0-5.0); BG FRACTION INSPIRED OXYGEN 80; BG HCO3 ACT 25.9 mmol/L (22.0-26.0); BG METHEMOGLOBIN 0.2 % (0.0-1.5); BG OXYGEN SATURATION 98.3 % (92.0-98.5); BG OXYHEMOGLOBIN 97.8 % (94.0-97.0); BG PH 7.487 (7.350-7.450); BG PO2 113.5 mmHg (75.0-100.0); BG SAMPLE SITE RIGHT BRACHIAL; BG TOTAL HEMOGLOBIN 10.5 g/dL (12.0-18.0); BG TOTAL RESPIRATORY RATE 34 b/min; BG VENT MODE MASK - BIPAP
[2021-06-24] MEDS: CEFTRIAXONE 2 G in DEXTROSE 5% WATER 50 ML IV SCH (18:18)
[2021-06-24 20:12] LABS: *AMPHETAMINES SCREEN URINE NEGATIVE (NEGATIVE); *BARBITURATES SCREEN URINE NEGATIVE (NEGATIVE); *BENZODIAZEPINES SCREEN URINE NEGATIVE (NEGATIVE); *COCAINE SCREEN URINE NEGATIVE (NEGATIVE); CANNABINOID URINE SCREEN NEGATIVE (NEGATIVE); METHADONE URINE SCREEN NEGATIVE (NEGATIVE); OPIATES URINE SCREEN NEGATIVE (NEGATIVE); PHENCYCLIDINE URINE SCREEN NEGATIVE (NEGATIVE)
[2021-06-24] MEDS: IPRATROPIUM/ALBUTEROL 0.5-3(2.5)MG/3ML NEB HHN SCH (21:08)
[2021-06-25] VITALS (17 sets, daily range): BP systolic 103–139; BP diastolic 50–83
[2021-06-25] MEDS: IPRATROPIUM/ALBUTEROL 0.5-3(2.5)MG/3ML NEB HHN SCH ×4 (01:19→20:15)
[2021-06-25] MEDS: BLOOD SUGAR DIAGNOSTIC STRIP TEST SCH ×4 (05:54→20:08)
[2021-06-25] MEDS: AMLODIPINE 10MG TABLET PO SCH (06:01)
[2021-06-25] MEDS: ENOXAPARIN 100MG/ML SYR SUBCUT SCH (06:02)
[2021-06-25 06:16] LABS: HEMATOCRIT. 27.7 % (42.0-52.0); HEMOGLOBIN. 9.1 g/dL (14.0-18.0); MEAN CORPUSCULAR HEMOGLOBIN 28.1 pg (28.0-32.0); MEAN CORPUSCULAR VOLUME 85.3 fL (80.0-94.0); MEAN PLATELET VOLUME 8.8 fl (7.4-10.4); PLATELET 313 x1000/uL (130-400); RED BLOOD CELL COUNT 3.25 mill/uL (4.7-6.1); RED CELL DISTRIBUTION WIDTH 14.7 % (11.6-14.6)
[2021-06-25 06:24] LABS: CHLORIDE 105 mEq/L (98-107)
[2021-06-25 06:33] LABS: LDL CHOLESTEROL 55 mg/dL (5-100)
[2021-06-25 06:35] LABS: HDL CHOLESTEROL 44 mg/dL (40-59)
[2021-06-25] MEDS: TAMSULOSIN HCL 0.4MG SR CAPSULE PO SCH (08:50)
[2021-06-25] MEDS: FUROSEMIDE 40MG/4ML VIAL IV SCH ×2 (08:50→18:19)
[2021-06-25] MEDS: ASPIRIN 81MG EC TABLET PO SCH (08:50)
[2021-06-25] MEDS: INSULIN LISPRO 100 UNITS/ML SUBCUT SCH ×4 (08:52→22:00)
[2021-06-25 13:22] LABS: PLATELET ESTIMATE NORMAL
[2021-06-25] MEDS: AZITHROMYCIN 500 MG TABLET PO SCH (16:16)
[2021-06-25] MEDS: CEFTRIAXONE 2 G in DEXTROSE 5% WATER 50 ML IV SCH (18:21)
[2021-06-25] MEDS: ENOXAPARIN 80MG/0.8ML SYR SUBCUT SCH (18:24)
[2021-06-26] VITALS (15 sets, daily range): BP systolic 104–143; BP diastolic 53–83
[2021-06-26] MEDS: IPRATROPIUM/ALBUTEROL 0.5-3(2.5)MG/3ML NEB HHN SCH ×4 (02:08→20:50)
[2021-06-26] MEDS: AMLODIPINE 10MG TABLET PO SCH (06:39)
[2021-06-26] MEDS: BLOOD SUGAR DIAGNOSTIC STRIP TEST SCH ×4 (06:40→20:58)
[2021-06-26] MEDS: ENOXAPARIN 80MG/0.8ML SYR SUBCUT SCH ×2 (06:40→18:30)
[2021-06-26] MEDS: ASPIRIN 81MG EC TABLET PO SCH (08:45)
[2021-06-26] MEDS: INSULIN LISPRO 100 UNITS/ML SUBCUT SCH ×4 (08:45→21:00)
[2021-06-26] MEDS: FUROSEMIDE 40MG/4ML VIAL IV SCH ×2 (08:45→17:27)
[2021-06-26] MEDS: AZITHROMYCIN 500 MG TABLET PO SCH (08:46)
[2021-06-26] MEDS: TAMSULOSIN HCL 0.4MG SR CAPSULE PO SCH (08:46)
[2021-06-26 09:58] LABS: BASOPHILS % 0.2 % (0.0-2.0); EOSINOPHILS % 0.8 % (0.0-5.0); HEMATOCRIT. 27.4 % (42.0-52.0); HEMOGLOBIN. 9.1 g/dL (14.0-18.0); LYMPHOCYTES % 7.3 % (20.0-50.0); MEAN CORPUSCULAR HEMOGLOBIN 28.2 pg (28.0-32.0); MEAN CORPUSCULAR VOLUME 84.7 fL (80.0-94.0); MEAN PLATELET VOLUME 8.1 fl (7.4-10.4); MONOCYTES % 6.9 % (2.0-8.0); NEUTROPHILS % 84.8 % (40.0-76.0); PLATELET 323 x1000/uL (130-400); RED BLOOD CELL COUNT 3.23 mill/uL (4.7-6.1)
[2021-06-26 10:12] LABS: CHLORIDE 105 mEq/L (98-107)
[2021-06-26] MEDS ORDERED: POTASSIUM CHLORIDE 20MEQ TABLET SR PO SCH (13:45)
[2021-06-26] MEDS: CEFTRIAXONE 2 G in DEXTROSE 5% WATER 50 ML IV SCH (18:30)
[2021-06-26] MEDS: ATENOLOL 25MG TABLET PO SCH (21:15)
[2021-06-27] VITALS (12 sets, daily range): BP systolic 109–149; BP diastolic 48–78
[2021-06-27] MEDS: IPRATROPIUM/ALBUTEROL 0.5-3(2.5)MG/3ML NEB HHN SCH ×5 (01:30→20:41)
[2021-06-27] MEDS: BLOOD SUGAR DIAGNOSTIC STRIP TEST SCH ×4 (06:26→21:07)
[2021-06-27] MEDS: ENOXAPARIN 80MG/0.8ML SYR SUBCUT SCH ×2 (06:30→18:06)
[2021-06-27] MEDS: AMLODIPINE 10MG TABLET PO SCH (06:30)
[2021-06-27] MEDS: INSULIN LISPRO 100 UNITS/ML SUBCUT SCH ×4 (09:42→21:10)
[2021-06-27] MEDS: ASPIRIN 81MG EC TABLET PO SCH (09:43)
[2021-06-27] MEDS: FUROSEMIDE 40MG/4ML VIAL IV SCH ×2 (09:43→18:05)
[2021-06-27] MEDS: AZITHROMYCIN 500 MG TABLET PO SCH (09:43)
[2021-06-27] MEDS: TAMSULOSIN HCL 0.4MG SR CAPSULE PO SCH (09:44)
[2021-06-27] MEDS: ATENOLOL 25MG TABLET PO SCH ×2 (09:44→21:26)
[2021-06-27 11:59] LABS: BASOPHILS % 0.5 % (0.0-2.0); EOSINOPHILS % 2.6 % (0.0-5.0); HEMATOCRIT. 30.9 % (42.0-52.0); HEMOGLOBIN. 9.7 g/dL (14.0-18.0); LYMPHOCYTES % 9.2 % (20.0-50.0); MEAN CORPUSCULAR HEMOGLOBIN 26.6 pg (28.0-32.0); MEAN CORPUSCULAR VOLUME 84.7 fL (80.0-94.0); MEAN PLATELET VOLUME 9.2 fl (7.4-10.4); MONOCYTES % 7.6 % (2.0-8.0); NEUTROPHILS % 80.1 % (40.0-76.0); PLATELET 368 x1000/uL (130-400); RED BLOOD CELL COUNT 3.65 mill/uL (4.7-6.1); RED CELL DISTRIBUTION WIDTH 14.9 % (11.6-14.6)
[2021-06-27 12:09] LABS: CHLORIDE 104 mEq/L (98-107)
[2021-06-27] MEDS: DILTIAZEM HCL 60MG TABLET PO SCH ×3 (13:03→21:12)
[2021-06-27] MEDS: CEFTRIAXONE 2 G in DEXTROSE 5% WATER 50 ML IV SCH (18:07)
[2021-06-28] VITALS (15 sets, daily range): BP systolic 94–133; BP diastolic 40–66
[2021-06-28] MEDS: IPRATROPIUM/ALBUTEROL 0.5-3(2.5)MG/3ML NEB HHN SCH ×4 (04:34→21:00)
[2021-06-28] MEDS: AMLODIPINE 10MG TABLET PO SCH ×2 (05:25→08:11)
[2021-06-28] MEDS: ENOXAPARIN 80MG/0.8ML SYR SUBCUT SCH ×2 (05:26→17:24)
[2021-06-28] MEDS: BLOOD SUGAR DIAGNOSTIC STRIP TEST SCH ×4 (06:40→20:25)
[2021-06-28] MEDS: ASPIRIN 81MG EC TABLET PO SCH (08:10)
[2021-06-28] MEDS: DILTIAZEM HCL 60MG TABLET PO SCH ×4 (08:10→22:00)
[2021-06-28] MEDS: AZITHROMYCIN 500 MG TABLET PO SCH (08:11)
[2021-06-28] MEDS: FUROSEMIDE 40MG/4ML VIAL IV SCH ×2 (08:11→17:25)
[2021-06-28] MEDS: ATENOLOL 25MG TABLET PO SCH ×2 (08:11→20:24)
[2021-06-28] MEDS: TAMSULOSIN HCL 0.4MG SR CAPSULE PO SCH (08:13)
[2021-06-28] MEDS: INSULIN LISPRO 100 UNITS/ML SUBCUT SCH ×4 (08:13→20:32)
[2021-06-28] MEDS: PREDNISONE 20MG TABLET PO SCH (17:25)
[2021-06-28] MEDS: CEFTRIAXONE 2 G in DEXTROSE 5% WATER 50 ML IV SCH (17:31)
[2021-06-29] VITALS (15 sets, daily range): BP systolic 90–135; BP diastolic 40–75
[2021-06-29] MEDS: IPRATROPIUM/ALBUTEROL 0.5-3(2.5)MG/3ML NEB HHN SCH ×4 (01:40→22:19)
[2021-06-29] MEDS: ENOXAPARIN 80MG/0.8ML SYR SUBCUT SCH ×2 (06:23→17:32)
[2021-06-29] MEDS: BLOOD SUGAR DIAGNOSTIC STRIP TEST SCH ×4 (06:26→21:02)
[2021-06-29] MEDS: INSULIN LISPRO 100 UNITS/ML SUBCUT SCH ×4 (07:55→21:02)
[2021-06-29] MEDS: AZITHROMYCIN 500 MG TABLET PO SCH (08:00)
[2021-06-29] MEDS: FUROSEMIDE 40MG/4ML VIAL IV SCH ×2 (08:00→17:32)
[2021-06-29] MEDS: PREDNISONE 20MG TABLET PO SCH (08:00)
[2021-06-29] MEDS: ASPIRIN 81MG EC TABLET PO SCH (08:00)
[2021-06-29] MEDS: DILTIAZEM HCL 60MG TABLET PO SCH ×4 (08:01→21:00)
[2021-06-29] MEDS: TAMSULOSIN HCL 0.4MG SR CAPSULE PO SCH (08:01)
[2021-06-29] MEDS: ATENOLOL 25MG TABLET PO SCH ×2 (08:01→21:00)
[2021-06-29] MEDS: CEFEPIME 2,000 MG in DEXT 5% WATER 100 ML IV SCH ×2 (12:12→20:59)
[2021-06-29] MEDS ORDERED: FUROSEMIDE 40MG/4ML VIAL IVP NR (14:00)
[2021-06-29] MEDS: METHYLPREDNISOLONE SOD SUCC 125 MG/2 ML VIAL IV SCH ×2 (15:17→21:00)
[2021-06-30] VITALS (12 sets, daily range): BP systolic 97–131; BP diastolic 43–63
[2021-06-30] MEDS: IPRATROPIUM/ALBUTEROL 0.5-3(2.5)MG/3ML NEB HHN SCH ×4 (02:16→20:47)
[2021-06-30] MEDS: AMLODIPINE 10MG TABLET PO SCH (06:00)
[2021-06-30] MEDS: METHYLPREDNISOLONE SOD SUCC 125 MG/2 ML VIAL IV SCH ×3 (06:18→22:41)
[2021-06-30] MEDS: ENOXAPARIN 80MG/0.8ML SYR SUBCUT SCH ×2 (06:18→18:28)
[2021-06-30 06:32] LABS: HEMOGLOBIN. 9.3 g/dL (14.0-18.0); MEAN CORPUSCULAR HEMOGLOBIN 26.6 pg (28.0-32.0); MEAN CORPUSCULAR VOLUME 83.4 fL (80.0-94.0); MEAN PLATELET VOLUME 7.9 fl (7.4-10.4); PLATELET 459 x1000/uL (130-400); RED BLOOD CELL COUNT 3.48 mill/uL (4.7-6.1); RED CELL DISTRIBUTION WIDTH 15.3 % (11.6-14.6)
[2021-06-30] MEDS: BLOOD SUGAR DIAGNOSTIC STRIP TEST SCH ×4 (06:45→21:00)
[2021-06-30] MEDS: INSULIN LISPRO 100 UNITS/ML SUBCUT SCH ×4 (06:47→22:46)
[2021-06-30 08:45] LABS: BG BASE EXCESS 0.1 mmol/L (-2.0-2.0); BG CARBOXYHEMOGLOBIN 0.3 % (0.5-1.5); BG DEOXYHEMOGLOBIN 8.1 % (0.0-5.0); BG FRACTION INSPIRED OXYGEN 364; BG HCO3 ACT 23.4 mmol/L (22.0-26.0); BG METHEMOGLOBIN 0.1 % (0.0-1.5); BG OXYGEN SATURATION 91.9 % (92.0-98.5); BG OXYHEMOGLOBIN 91.5 % (94.0-97.0); BG PCO2 33.3 mmHg (35.0-45.0); BG PH 7.465 (7.350-7.450); BG SAMPLE SITE RIGHT BRACHIAL; BG TOTAL HEMOGLOBIN 10.1 g/dL (12.0-18.0); BG VENT MODE NASAL CANNULA
[2021-06-30] MEDS ORDERED: METOLAZONE 2.5MG TABLET PO SCH (09:00)
[2021-06-30] MEDS: AZITHROMYCIN 500 MG TABLET PO SCH (09:09)
[2021-06-30] MEDS: TAMSULOSIN HCL 0.4MG SR CAPSULE PO SCH (09:10)
[2021-06-30] MEDS: DILTIAZEM HCL 60MG TABLET PO SCH (09:10)
[2021-06-30] MEDS: ASPIRIN 81MG EC TABLET PO SCH (09:10)
[2021-06-30] MEDS: ATENOLOL 25MG TABLET PO SCH ×2 (09:12→21:00)
[2021-06-30] MEDS: CEFEPIME 2,000 MG in DEXT 5% WATER 100 ML IV SCH ×2 (09:26→22:40)
[2021-06-30] MEDS: FUROSEMIDE 40MG/4ML VIAL IV SCH ×2 (09:26→18:28)
[2021-06-30] MEDS ORDERED: LACTULOSE 20G/30ML UDC PO NR (10:30)
[2021-06-30] MEDS: DOCUSATE SODIUM 250MG CAPSULE PO SCH (11:46)
[2021-06-30 12:36] LABS: PLATELET ESTIMATE INCREASED
[2021-06-30] MEDS: DILTIAZEM HCL 30MG TABLET PO SCH ×3 (13:51→22:41)
[2021-06-30] MEDS: POTASSIUM CHLORIDE 20MEQ TABLET SR PO SCH (13:51)
[2021-06-30] MEDS ORDERED: INSULIN GLARGINE UD 100 UNITS/ML SYR SUBCUT SCH (22:00)
[2021-07-01] VITALS (15 sets, daily range): BP systolic 97–128; BP diastolic 43–62
[2021-07-01] MEDS: IPRATROPIUM/ALBUTEROL 0.5-3(2.5)MG/3ML NEB HHN SCH ×4 (01:42→21:25)
[2021-07-01] MEDS: ENOXAPARIN 80MG/0.8ML SYR SUBCUT SCH (06:24)
[2021-07-01] MEDS: METHYLPREDNISOLONE SOD SUCC 125 MG/2 ML VIAL IV SCH ×3 (06:24→21:38)
[2021-07-01] MEDS: AMLODIPINE 10MG TABLET PO SCH (06:24)
[2021-07-01] MEDS: BLOOD SUGAR DIAGNOSTIC STRIP TEST SCH ×4 (07:11→21:38)
[2021-07-01] MEDS: INSULIN LISPRO 100 UNITS/ML SUBCUT SCH ×4 (07:13→21:42)
[2021-07-01 08:01] LABS: CHLORIDE 100 mEq/L (98-107)
[2021-07-01] MEDS: ASPIRIN 81MG EC TABLET PO SCH (08:26)
[2021-07-01] MEDS: FUROSEMIDE 40MG/4ML VIAL IV SCH (08:26)
[2021-07-01] MEDS: DOCUSATE SODIUM 250MG CAPSULE PO SCH (08:26)
[2021-07-01] MEDS: TAMSULOSIN HCL 0.4MG SR CAPSULE PO SCH (08:27)
[2021-07-01] MEDS: POTASSIUM CHLORIDE 20MEQ TABLET SR PO SCH (08:27)
[2021-07-01] MEDS: DILTIAZEM HCL 30MG TABLET PO SCH ×4 (08:28→21:41)
[2021-07-01] MEDS: ATENOLOL 25MG TABLET PO SCH ×2 (08:28→21:00)
[2021-07-01] MEDS ORDERED: POTASSIUM CHLORIDE 20MEQ TABLET SR PO SCH (08:30)
[2021-07-01] MEDS: CEFEPIME 2,000 MG in DEXT 5% WATER 100 ML IV SCH ×2 (08:37→21:38)
[2021-07-01] MEDS: ENOXAPARIN 100MG/ML SYR SUBCUT SCH (18:06)
[2021-07-01] MEDS: INSULIN GLARGINE UD 100 UNITS/ML SYR SUBCUT SCH (21:42)
[2021-07-01 22:57] LABS: BG BASE EXCESS 1.2 mmol/L (-2.0-2.0); BG CARBOXYHEMOGLOBIN 0.3 % (0.5-1.5); BG DEOXYHEMOGLOBIN 11.7 % (0.0-5.0); BG FRACTION INSPIRED OXYGEN 44; BG HCO3 ACT 24.3 mmol/L (22.0-26.0); BG METHEMOGLOBIN 0.5 % (0.0-1.5); BG OXYGEN SATURATION 88.2 % (92.0-98.5); BG OXYHEMOGLOBIN 87.5 % (94.0-97.0); BG PCO2 33.1 mmHg (35.0-45.0); BG PH 7.484 (7.350-7.450); BG PO2 55.3 mmHg (75.0-100.0); BG SAMPLE SITE RIGHT RADIAL; BG TOTAL HEMOGLOBIN 10.6 g/dL (12.0-18.0); BG VENT MODE NASAL CANNULA
[2021-07-02] VITALS (17 sets, daily range): BP systolic 103–137; BP diastolic 48–78
[2021-07-02] MEDS: IPRATROPIUM/ALBUTEROL 0.5-3(2.5)MG/3ML NEB HHN SCH ×5 (01:20→21:16)
[2021-07-02 06:04] LABS: HEMATOCRIT. 29.4 % (42.0-52.0); HEMOGLOBIN. 9.7 g/dL (14.0-18.0); MEAN CORPUSCULAR HEMOGLOBIN 27.5 pg (28.0-32.0); MEAN CORPUSCULAR VOLUME 83.7 fL (80.0-94.0); MEAN PLATELET VOLUME 7.9 fl (7.4-10.4); PLATELET 501 x1000/uL (130-400); RED BLOOD CELL COUNT 3.51 mill/uL (4.7-6.1); RED CELL DISTRIBUTION WIDTH 15.5 % (11.6-14.6)
[2021-07-02] MEDS: METHYLPREDNISOLONE SOD SUCC 125 MG/2 ML VIAL IV SCH ×3 (06:36→21:11)
[2021-07-02] MEDS: INSULIN LISPRO 100 UNITS/ML SUBCUT SCH ×4 (06:36→21:11)
[2021-07-02] MEDS: BLOOD SUGAR DIAGNOSTIC STRIP TEST SCH ×4 (06:36→21:06)
[2021-07-02] MEDS: AMLODIPINE 10MG TABLET PO SCH (06:37)
[2021-07-02] MEDS: ENOXAPARIN 100MG/ML SYR SUBCUT SCH ×2 (06:37→17:46)
[2021-07-02] MEDS: DOCUSATE SODIUM 250MG CAPSULE PO SCH (07:48)
[2021-07-02] MEDS: TAMSULOSIN HCL 0.4MG SR CAPSULE PO SCH (07:48)
[2021-07-02] MEDS: POTASSIUM CHLORIDE 20MEQ TABLET SR PO SCH (07:49)
[2021-07-02] MEDS: ASPIRIN 81MG EC TABLET PO SCH (07:49)
[2021-07-02] MEDS: ATENOLOL 25MG TABLET PO SCH ×2 (07:49→21:06)
[2021-07-02] MEDS: DILTIAZEM HCL 30MG TABLET PO SCH ×4 (07:50→21:06)
[2021-07-02] MEDS: FUROSEMIDE 40MG/4ML VIAL IV SCH (09:00)
[2021-07-02] MEDS: CEFEPIME 2,000 MG in DEXT 5% WATER 100 ML IV SCH ×2 (09:31→21:05)
[2021-07-02 11:08] LABS: BG BASE EXCESS 2.3 mmol/L (-2.0-2.0); BG CARBOXYHEMOGLOBIN 0.3 % (0.5-1.5); BG DEOXYHEMOGLOBIN 1.5 % (0.0-5.0); BG FRACTION INSPIRED OXYGEN 100; BG HCO3 ACT 25.6 mmol/L (22.0-26.0); BG METHEMOGLOBIN 0.2 % (0.0-1.5); BG OXYGEN SATURATION 98.5 % (92.0-98.5); BG PCO2 34.7 mmHg (35.0-45.0); BG PH 7.485 (7.350-7.450); BG PO2 126.8 mmHg (75.0-100.0); BG TOTAL HEMOGLOBIN 10.9 g/dL (12.0-18.0); BG VENT MODE MASK - BIPAP
[2021-07-02 14:00] LABS: ATYPICAL LYMPHOCYTES 1; PLATELET ESTIMATE INCREASED
[2021-07-02] MEDS: INSULIN GLARGINE UD 100 UNITS/ML SYR SUBCUT SCH (21:11)
[2021-07-03] VITALS (13 sets, daily range): BP systolic 99–155; BP diastolic 45–95
[2021-07-03] MEDS: IPRATROPIUM/ALBUTEROL 0.5-3(2.5)MG/3ML NEB HHN SCH ×4 (02:39→20:54)
[2021-07-03] MEDS: METHYLPREDNISOLONE SOD SUCC 125 MG/2 ML VIAL IV SCH ×3 (06:23→22:04)
[2021-07-03] MEDS: BLOOD SUGAR DIAGNOSTIC STRIP TEST SCH ×4 (06:24→21:00)
[2021-07-03] MEDS: ENOXAPARIN 100MG/ML SYR SUBCUT SCH ×2 (06:24→19:16)
[2021-07-03] MEDS: AMLODIPINE 10MG TABLET PO SCH ×2 (06:24→08:32)
[2021-07-03] MEDS: INSULIN LISPRO 100 UNITS/ML SUBCUT SCH ×4 (07:20→22:05)
[2021-07-03] MEDS: ASPIRIN 81MG EC TABLET PO SCH (08:32)
[2021-07-03] MEDS: DILTIAZEM HCL 30MG TABLET PO SCH ×4 (08:32→22:05)
[2021-07-03] MEDS: TAMSULOSIN HCL 0.4MG SR CAPSULE PO SCH (08:32)
[2021-07-03] MEDS: ATENOLOL 25MG TABLET PO SCH ×2 (08:32→22:05)
[2021-07-03] MEDS: POTASSIUM CHLORIDE 20MEQ TABLET SR PO SCH (08:32)
[2021-07-03] MEDS: DOCUSATE SODIUM 250MG CAPSULE PO SCH (08:32)
[2021-07-03] MEDS: FUROSEMIDE 40MG/4ML VIAL IV SCH (08:33)
[2021-07-03] MEDS: CEFEPIME 2,000 MG in DEXT 5% WATER 100 ML IV SCH ×2 (08:45→22:04)
[2021-07-03 16:12] LABS: BG BASE EXCESS 2.5 mmol/L (-2.0-2.0); BG CARBOXYHEMOGLOBIN 0.3 % (0.5-1.5); BG DEOXYHEMOGLOBIN 10.1 % (0.0-5.0); BG FRACTION INSPIRED OXYGEN 100; BG HCO3 ACT 26.4 mmol/L (22.0-26.0); BG METHEMOGLOBIN 0.1 % (0.0-1.5); BG OXYGEN SATURATION 89.9 % (92.0-98.5); BG OXYHEMOGLOBIN 89.5 % (94.0-97.0); BG PCO2 38.1 mmHg (35.0-45.0); BG PH 7.458 (7.350-7.450); BG PO2 58.5 mmHg (75.0-100.0); BG SAMPLE SITE RIGHT RADIAL; BG TOTAL HEMOGLOBIN 11.6 g/dL (12.0-18.0); BG VENT MODE MASK - BIPAP
[2021-07-03] MEDS: INSULIN GLARGINE UD 100 UNITS/ML SYR SUBCUT SCH (22:06)
[2021-07-04] VITALS (13 sets, daily range): BP systolic 125–146; BP diastolic 52–89
[2021-07-04] MEDS: IPRATROPIUM/ALBUTEROL 0.5-3(2.5)MG/3ML NEB HHN SCH ×4 (02:31→20:11)
[2021-07-04] MEDS: METHYLPREDNISOLONE SOD SUCC 125 MG/2 ML VIAL IV SCH ×3 (06:05→21:51)
[2021-07-04] MEDS: ENOXAPARIN 100MG/ML SYR SUBCUT SCH ×2 (06:05→19:11)
[2021-07-04] MEDS: BLOOD SUGAR DIAGNOSTIC STRIP TEST SCH ×4 (06:05→21:53)
[2021-07-04] MEDS: INSULIN LISPRO 100 UNITS/ML SUBCUT SCH ×4 (06:44→21:53)
[2021-07-04] MEDS: DILTIAZEM HCL 30MG TABLET PO SCH ×4 (07:59→21:00)
[2021-07-04] MEDS: ATENOLOL 25MG TABLET PO SCH (08:01)
[2021-07-04] MEDS: POTASSIUM CHLORIDE 20MEQ TABLET SR PO SCH (08:42)
[2021-07-04] MEDS: DOCUSATE SODIUM 250MG CAPSULE PO SCH (08:42)
[2021-07-04] MEDS: ASPIRIN 81MG EC TABLET PO SCH (08:42)
[2021-07-04] MEDS: TAMSULOSIN HCL 0.4MG SR CAPSULE PO SCH (08:42)
[2021-07-04] MEDS: FUROSEMIDE 40MG/4ML VIAL IV SCH (08:42)
[2021-07-04] MEDS: INSULIN GLARGINE UD 100 UNITS/ML SYR SUBCUT SCH (21:53)
[2021-07-05] VITALS (12 sets, daily range): BP systolic 103–142; BP diastolic 47–76
[2021-07-05] MEDS: IPRATROPIUM/ALBUTEROL 0.5-3(2.5)MG/3ML NEB HHN SCH ×3 (01:34→15:16)
[2021-07-05 06:09] LABS: HEMATOCRIT. 33.7 % (42.0-52.0); HEMOGLOBIN. 11.1 g/dL (14.0-18.0); MEAN CORPUSCULAR HEMOGLOBIN 27.4 pg (28.0-32.0); MEAN PLATELET VOLUME 8.3 fl (7.4-10.4); PLATELET 392 x1000/uL (130-400); RED BLOOD CELL COUNT 4.05 mill/uL (4.7-6.1); RED CELL DISTRIBUTION WIDTH 15.7 % (11.6-14.6)
[2021-07-05] MEDS: METHYLPREDNISOLONE SOD SUCC 125 MG/2 ML VIAL IV SCH ×3 (06:48→22:04)
[2021-07-05] MEDS: ENOXAPARIN 100MG/ML SYR SUBCUT SCH (06:50)
[2021-07-05] MEDS: BLOOD SUGAR DIAGNOSTIC STRIP TEST SCH ×4 (07:01→21:00)
[2021-07-05] MEDS: AMLODIPINE 10MG TABLET PO SCH (07:04)
[2021-07-05] MEDS: DILTIAZEM HCL 30MG TABLET PO SCH ×5 (08:09→21:00)
[2021-07-05] MEDS: POTASSIUM CHLORIDE 20MEQ TABLET SR PO SCH (08:35)
[2021-07-05] MEDS: DOCUSATE SODIUM 250MG CAPSULE PO SCH (08:35)
[2021-07-05] MEDS: TAMSULOSIN HCL 0.4MG SR CAPSULE PO SCH (08:35)
[2021-07-05] MEDS: FUROSEMIDE 40MG/4ML VIAL IV SCH (08:35)
[2021-07-05] MEDS: ASPIRIN 81MG EC TABLET PO SCH (08:35)
[2021-07-05] MEDS: INSULIN LISPRO 100 UNITS/ML SUBCUT SCH ×4 (08:36→22:05)
[2021-07-05 09:43] LABS: BG BASE EXCESS 4.8 mmol/L (-2.0-2.0); BG CARBOXYHEMOGLOBIN 0.2 % (0.5-1.5); BG DEOXYHEMOGLOBIN 7.9 % (0.0-5.0); BG FRACTION INSPIRED OXYGEN 100; BG HCO3 ACT 27.8 mmol/L (22.0-26.0); BG METHEMOGLOBIN 0.3 % (0.0-1.5); BG OXYGEN SATURATION 92.1 % (92.0-98.5); BG OXYHEMOGLOBIN 91.6 % (94.0-97.0); BG PCO2 35.6 mmHg (35.0-45.0); BG PH 7.511 (7.350-7.450); BG PO2 60.6 mmHg (75.0-100.0); BG TOTAL HEMOGLOBIN 11.1 g/dL (12.0-18.0); BG VENT MODE MASK - BIPAP
[2021-07-05 13:21] LABS: PLATELET ESTIMATE NORMAL
[2021-07-05] MEDS: INSULIN GLARGINE UD 100 UNITS/ML SYR SUBCUT SCH (22:06)
[2021-07-06] VITALS (13 sets, daily range): BP systolic 123–157; BP diastolic 48–95
[2021-07-06] MEDS: IPRATROPIUM/ALBUTEROL 0.5-3(2.5)MG/3ML NEB HHN SCH ×3 (03:12→14:02)
[2021-07-06] MEDS: METHYLPREDNISOLONE SOD SUCC 125 MG/2 ML VIAL IV SCH ×3 (06:12→22:42)
[2021-07-06] MEDS: BLOOD SUGAR DIAGNOSTIC STRIP TEST SCH ×4 (06:12→21:56)
[2021-07-06] MEDS: AMLODIPINE 10MG TABLET PO SCH (06:12)
[2021-07-06] MEDS: INSULIN LISPRO 100 UNITS/ML SUBCUT SCH ×4 (06:28→21:00)
[2021-07-06] MEDS: DILTIAZEM HCL 30MG TABLET PO SCH ×4 (07:44→21:53)
[2021-07-06] MEDS: POTASSIUM CHLORIDE 20MEQ TABLET SR PO SCH (09:58)
[2021-07-06] MEDS: TAMSULOSIN HCL 0.4MG SR CAPSULE PO SCH (09:58)
[2021-07-06] MEDS: ASPIRIN 81MG EC TABLET PO SCH (09:58)
[2021-07-06] MEDS: FUROSEMIDE 40MG/4ML VIAL IV SCH (09:58)
[2021-07-06] MEDS: DOCUSATE SODIUM 250MG CAPSULE PO SCH (09:58)
[2021-07-06] MEDS: ENOXAPARIN 100MG/ML SYR SUBCUT SCH (09:59)
[2021-07-06] MEDS: INSULIN GLARGINE UD 100 UNITS/ML SYR SUBCUT SCH (21:59)
[2021-07-07] VITALS (12 sets, daily range): BP systolic 112–142; BP diastolic 52–104
[2021-07-07] MEDS: IPRATROPIUM/ALBUTEROL 0.5-3(2.5)MG/3ML NEB HHN SCH ×4 (00:29→21:23)
[2021-07-07] MEDS: METHYLPREDNISOLONE SOD SUCC 125 MG/2 ML VIAL IV SCH ×3 (06:03→22:11)
[2021-07-07] MEDS: AMLODIPINE 10MG TABLET PO SCH (06:05)
[2021-07-07] MEDS: BLOOD SUGAR DIAGNOSTIC STRIP TEST SCH ×4 (06:05→21:59)
[2021-07-07] MEDS: ASPIRIN 81MG EC TABLET PO SCH (08:28)
[2021-07-07] MEDS: TAMSULOSIN HCL 0.4MG SR CAPSULE PO SCH (08:28)
[2021-07-07] MEDS: DOCUSATE SODIUM 250MG CAPSULE PO SCH (08:28)
[2021-07-07] MEDS: FUROSEMIDE 40MG/4ML VIAL IV SCH (08:28)
[2021-07-07] MEDS: DILTIAZEM HCL 30MG TABLET PO SCH ×4 (08:29→22:15)
[2021-07-07] MEDS: POTASSIUM CHLORIDE 20MEQ TABLET SR PO SCH (08:29)
[2021-07-07] MEDS: INSULIN LISPRO 100 UNITS/ML SUBCUT SCH ×4 (08:29→22:11)
[2021-07-07] MEDS: ENOXAPARIN 100MG/ML SYR SUBCUT SCH (08:30)
[2021-07-07 17:50] LABS: BG BASE EXCESS 9.9 mmol/L (-2.0-2.0); BG CARBOXYHEMOGLOBIN 0.3 % (0.5-1.5); BG DEOXYHEMOGLOBIN 7.9 % (0.0-5.0); BG FRACTION INSPIRED OXYGEN 65; BG HCO3 ACT 33.5 mmol/L (22.0-26.0); BG METHEMOGLOBIN 0.3 % (0.0-1.5); BG OXYGEN SATURATION 92.1 % (92.0-98.5); BG OXYHEMOGLOBIN 91.5 % (94.0-97.0); BG PCO2 41.5 mmHg (35.0-45.0); BG PH 7.525 (7.350-7.450); BG PO2 62.2 mmHg (75.0-100.0); BG SAMPLE SITE RIGHT BRACHIAL; BG TOTAL HEMOGLOBIN 10.5 g/dL (12.0-18.0); BG VENT MODE MASK - BIPAP
[2021-07-07] MEDS: INSULIN GLARGINE UD 100 UNITS/ML SYR SUBCUT SCH (22:11)
[2021-07-08] VITALS (16 sets, daily range): BP systolic 105–137; BP diastolic 49–69
[2021-07-08] MEDS: IPRATROPIUM/ALBUTEROL 0.5-3(2.5)MG/3ML NEB HHN SCH ×4 (00:56→18:00)
[2021-07-08] MEDS: AMLODIPINE 10MG TABLET PO SCH (06:00)
[2021-07-08] MEDS: METHYLPREDNISOLONE SOD SUCC 125 MG/2 ML VIAL IV SCH ×3 (06:09→21:40)
[2021-07-08] MEDS: BLOOD SUGAR DIAGNOSTIC STRIP TEST SCH ×4 (06:14→21:00)
[2021-07-08] MEDS: DOCUSATE SODIUM 250MG CAPSULE PO SCH (08:11)
[2021-07-08] MEDS: INSULIN LISPRO 100 UNITS/ML SUBCUT SCH ×5 (08:36→21:43)
[2021-07-08] MEDS: FUROSEMIDE 40MG/4ML VIAL IV SCH (08:36)
[2021-07-08] MEDS: POTASSIUM CHLORIDE 20MEQ TABLET SR PO SCH (08:37)
[2021-07-08] MEDS: TAMSULOSIN HCL 0.4MG SR CAPSULE PO SCH (08:37)
[2021-07-08] MEDS: ASPIRIN 81MG EC TABLET PO SCH (08:37)
[2021-07-08] MEDS: DILTIAZEM HCL 30MG TABLET PO SCH ×4 (08:37→21:00)
[2021-07-08] MEDS: ENOXAPARIN 100MG/ML SYR SUBCUT SCH (08:37)
[2021-07-08] MEDS ORDERED: DEXT 5%/0.9% NACL 1,000 ML IV SCH (09:30)
[2021-07-08] MEDS: DEXTROSE 5% WATER 1,000 ML IV SCH (12:52)
[2021-07-08 14:47] LABS: CREATINE KINASE 100 IU/L (39-308)
[2021-07-08] MEDS: INSULIN GLARGINE UD 100 UNITS/ML SYR SUBCUT SCH (21:43)
[2021-07-08 22:13] LABS: CLARITY URINE CLOUDY (CLEAR); COLOR URINE YELLOW (YELLOW); KETONES URINE NEGATIVE (NEGATIVE); LEUKOCYTE ESTERASE URINE 1+ (NEGATIVE); NITRITE URINE NEGATIVE (NEGATIVE); OCCULT BLOOD URINE 1+ (NEGATIVE); PROTEIN URINE 1+ (NEGATIVE); SPECIFIC GRAVITY URINE 1.016 (1.005-1.030); UROBILINOGEN URINE 0.2 E.U./dL (0.2-1.0)
[2021-07-09] VITALS (12 sets, daily range): BP systolic 95–145; BP diastolic 45–66
[2021-07-09] MEDS: IPRATROPIUM/ALBUTEROL 0.5-3(2.5)MG/3ML NEB HHN SCH ×4 (01:17→20:33)
[2021-07-09] MEDS: AMLODIPINE 10MG TABLET PO SCH (06:00)
[2021-07-09] MEDS: BLOOD SUGAR DIAGNOSTIC STRIP TEST SCH ×4 (06:35→21:00)
[2021-07-09] MEDS: METHYLPREDNISOLONE SOD SUCC 125 MG/2 ML VIAL IV SCH ×3 (06:45→21:52)
[2021-07-09 07:25] LABS: CHLORIDE 100 mEq/L (98-107)
[2021-07-09 07:40] LABS: HEMATOCRIT. 25.4 % (42.0-52.0); HEMOGLOBIN. 8.2 g/dL (14.0-18.0); MEAN CORPUSCULAR HEMOGLOBIN 26.6 pg (28.0-32.0); MEAN CORPUSCULAR VOLUME 82.2 fL (80.0-94.0); MEAN PLATELET VOLUME 9.2 fl (7.4-10.4); PLATELET 254 x1000/uL (130-400); RED BLOOD CELL COUNT 3.09 mill/uL (4.7-6.1); RED CELL DISTRIBUTION WIDTH 15.4 % (11.6-14.6)
[2021-07-09] MEDS: INSULIN LISPRO 100 UNITS/ML SUBCUT SCH ×4 (08:12→21:52)
[2021-07-09] MEDS: DOCUSATE SODIUM 250MG CAPSULE PO SCH (08:49)
[2021-07-09] MEDS: DILTIAZEM HCL 30MG TABLET PO SCH ×4 (08:49→21:00)
[2021-07-09] MEDS: ASPIRIN 81MG EC TABLET PO SCH (08:50)
[2021-07-09] MEDS: TAMSULOSIN HCL 0.4MG SR CAPSULE PO SCH (08:50)
[2021-07-09] MEDS: POTASSIUM CHLORIDE 20MEQ TABLET SR PO SCH (08:50)
[2021-07-09] MEDS: ENOXAPARIN 100MG/ML SYR SUBCUT SCH (08:50)
[2021-07-09] MEDS ORDERED: MORPHINE SULFATE 2 MG/ML CPJ (NOT FOR IM USE) IV PRN (09:00)
[2021-07-09] MEDS ORDERED: NALOXONE HCL 0.4MG/ML VIAL IV PRN (12:00)
[2021-07-09] MEDS: DEXTROSE 5% WATER 1,000 ML IV SCH ×2 (13:20)
[2021-07-09] MEDS: MORPHINE SULFATE 2 MG/ML CPJ (NOT FOR IM USE) IV PRN (15:35)
[2021-07-09] MEDS: ENOXAPARIN 80MG/0.8ML SYR SUBCUT SCH (16:00)
[2021-07-09 20:46] LABS: PLATELET ESTIMATE NORMAL
[2021-07-09] MEDS: INSULIN GLARGINE UD 100 UNITS/ML SYR SUBCUT SCH (21:53)
[2021-07-10] VITALS (12 sets, daily range): BP systolic 102–147; BP diastolic 46–93
[2021-07-10] MEDS: DEXTROSE 5% WATER 1,000 ML IV SCH ×2 (01:24→15:22)
[2021-07-10] MEDS: IPRATROPIUM/ALBUTEROL 0.5-3(2.5)MG/3ML NEB HHN SCH ×4 (02:27→21:29)
[2021-07-10] MEDS: METHYLPREDNISOLONE SOD SUCC 125 MG/2 ML VIAL IV SCH ×3 (05:57→21:16)
[2021-07-10] MEDS: AMLODIPINE 10MG TABLET PO SCH (05:57)
[2021-07-10] MEDS: BLOOD SUGAR DIAGNOSTIC STRIP TEST SCH ×4 (05:57→21:00)
[2021-07-10] MEDS: INSULIN LISPRO 100 UNITS/ML SUBCUT SCH ×4 (07:03→21:17)
[2021-07-10 08:11] LABS: ANTI-NUCLEAR ANTIBODIES DIRECT Negative (Negative)
[2021-07-10] MEDS: DILTIAZEM HCL 30MG TABLET PO SCH ×4 (09:00→20:15)
[2021-07-10] MEDS: ASPIRIN 81MG EC TABLET PO SCH (09:00)
[2021-07-10] MEDS: TAMSULOSIN HCL 0.4MG SR CAPSULE PO SCH (09:00)
[2021-07-10] MEDS: DOCUSATE SODIUM 250MG CAPSULE PO SCH (09:00)
[2021-07-10] MEDS: POTASSIUM CHLORIDE 20MEQ TABLET SR PO SCH (09:00)
[2021-07-10] MEDS: MORPHINE SULFATE 2 MG/ML CPJ (NOT FOR IM USE) IV PRN ×2 (10:25→17:21)
[2021-07-10] MEDS: ENOXAPARIN 80MG/0.8ML SYR SUBCUT SCH (15:22)
[2021-07-10] MEDS: INSULIN GLARGINE UD 100 UNITS/ML SYR SUBCUT SCH (21:17)
[2021-07-11] VITALS (12 sets, daily range): BP systolic 106–132; BP diastolic 50–79
[2021-07-11] MEDS: IPRATROPIUM/ALBUTEROL 0.5-3(2.5)MG/3ML NEB HHN SCH ×4 (02:49→21:47)
[2021-07-11] MEDS: METHYLPREDNISOLONE SOD SUCC 125 MG/2 ML VIAL IV SCH ×3 (05:27→21:28)
[2021-07-11] MEDS: AMLODIPINE 10MG TABLET PO SCH (05:27)
[2021-07-11] MEDS: DEXTROSE 5% WATER 1,000 ML IV SCH ×2 (05:27→18:14)
[2021-07-11] MEDS: BLOOD SUGAR DIAGNOSTIC STRIP TEST SCH ×4 (06:21→21:08)
[2021-07-11] MEDS: DOCUSATE SODIUM 250MG CAPSULE PO SCH (08:12)
[2021-07-11] MEDS: TAMSULOSIN HCL 0.4MG SR CAPSULE PO SCH (08:13)
[2021-07-11] MEDS: ASPIRIN 81MG EC TABLET PO SCH (08:13)
[2021-07-11] MEDS: POTASSIUM CHLORIDE 20MEQ TABLET SR PO SCH (08:14)
[2021-07-11] MEDS: DILTIAZEM HCL 30MG TABLET PO SCH ×6 (09:00→21:00)
[2021-07-11] MEDS: INSULIN LISPRO 100 UNITS/ML SUBCUT SCH ×4 (09:38→21:25)
[2021-07-11] MEDS: ENOXAPARIN 80MG/0.8ML SYR SUBCUT SCH (16:00)
[2021-07-11] MEDS: MORPHINE SULFATE 2 MG/ML CPJ (NOT FOR IM USE) IV PRN ×2 (17:08→23:36)
[2021-07-11] MEDS: INSULIN GLARGINE UD 100 UNITS/ML SYR SUBCUT SCH (21:25)
[2021-07-12 01:06] VITALS: BP 67/35
[2021-07-12 02:01] VITALS: BP 43/25
== END 2021-07-12 02:45 | DRG 871 ==
LOC: ER 15:01 → EDBEDREQTM 16:02 → EDBEDREQSVC 16:02 → EDBEDREQ 16:02 → 3WST 17:19 → EDBEDREQTM 17:24 → EDBEDREQ 17:24 → EDBEDREQSVC 06-24 07:08 → ENRESERV 06-24 07:37 → 3WST 07-03 20:19
PROVIDERS: ADMIT Hospitalist; ATTEND Hospitalist
PROC: 5A09457 Assistance with Respiratory Ventilation, 24-96 Consecutive Hours, Continuous Positive Airway Pressure (ICD-10-PCS; principal; 2021-06-23)
PROC: 5A09357 Assistance with Respiratory Ventilation, Less than 24 Consecutive Hours, Continuous Positive Airway Pressure (ICD-10-PCS; 2021-06-28)
PROC: 5A09357 Assistance with Respiratory Ventilation, Less than 24 Consecutive Hours, Continuous Positive Airway Pressure (ICD-10-PCS; 2021-06-30)
PROC: 5A09557 Assistance with Respiratory Ventilation, Greater than 96 Consecutive Hours, Continuous Positive Airway Pressure (ICD-10-PCS; 2021-07-02)
DX: A41.9 Sepsis, unspecified organism (principal); J80 Acute respiratory distress syndrome; E11.10 Type 2 diabetes mellitus with ketoacidosis without coma; I21.4 Non-ST elevation (NSTEMI) myocardial infarction; E43 Unspecified severe protein-calorie malnutrition; I50.33 Acute on chronic diastolic (congestive) heart failure; J18.9 Pneumonia, unspecified organism; N18.6 End stage renal disease; N17.0 Acute kidney failure with tubular necrosis; N39.0 Urinary tract infection, site not specified; E87.1 Hypo-osmolality and hyponatremia; I13.2 Hypertensive heart and chronic kidney disease with heart failure and with stage 5 chronic kidney disease, or end stage renal disease; Z66 Do not resuscitate; G40.901 Epilepsy, unspecified, not intractable, with status epilepticus; L89.226 Pressure-induced deep tissue damage of left hip; E11.65 Type 2 diabetes mellitus with hyperglycemia; E11.22 Type 2 diabetes mellitus with diabetic chronic kidney disease; E87.5 Hyperkalemia; E11.51 Type 2 diabetes mellitus with diabetic peripheral angiopathy without gangrene; D64.9 Anemia, unspecified; Z20.822 Contact with and (suspected) exposure to COVID-19; N40.0 Benign prostatic hyperplasia without lower urinary tract symptoms; L89.156 Pressure-induced deep tissue damage of sacral region; I48.91 Unspecified atrial fibrillation; R13.10 Dysphagia, unspecified; Z89.511 Acquired absence of right leg below knee; Z79.84 Long term (current) use of oral hypoglycemic drugs; Z79.899 Other long term (current) drug therapy; Z82.49 Family history of ischemic heart disease and other diseases of the circulatory system; Z83.3 Family history of diabetes mellitus; Z68.25 Body mass index [BMI] 25.0-25.9, adult; Z51.5 Encounter for palliative care; Z99.2 Dependence on renal dialysis
CPT/HCPCS: 36415; 36600; 71045; 71250; 76770; 80048; 80053; 80061; 80305; 81003; 82010; 82375; 82550; 82805; 82962; 83036; 83605; 83735; 83880; 84134; 84145; 84484; 85025; 86038; 86160; 87426; 87804; 92610; 93005; 93306; 93970; 94640; 94644; 94660; 99291; A6261; J0692; J0696; J1644; J1650; J1815; J1940; J2270; J2543; J2930; J3370; J3490; J7060; J7070; J7512; A4315